=== PATIENT | female | born 1945 | race Caucasian/White ===

== ENCOUNTER 2016-11-04 08:23 | Emergency (ER) | payer OTHER ==
--- NOTE | 2016-11-04 08:33 | EDPHY ---
H & P Time Seen by Provider: 11/04/16 08:31 HPI/ROS: CHIEF COMPLAINT: Knee pain HISTORY OF PRESENT ILLNESS: The patient is a 71-year-old female presenting with acute left knee pain that started yesterday afternoon. The patient was line dancing yesterday without difficulty or pain. About 1 hour after dancing she stood up from the couch and felt as though her left knee would not support her. Today she reports dull pain with weightbearing. She has difficulty ambulating secondary to the pain and has been using a knee brace from a previous ACL injury as well as a cane to get around. She denies lower extremity weakness, numbness or tingling. No hip or ankle pain. No reported injury or trauma. No fever. She has taken Tylenol. She is unable to localize the site of her pain. REVIEW OF SYSTEMS: A ten point review of systems was performed and is negative with the exception of the items mentioned in the HPI. Source: Patient - Medical/Surgical History Other PMH: HTN, High cholesterol, Glaucoma - Social History Smoking Status: Never smoked Alcohol Use: Rarely Additional Social History: Rare alcohol use. Nonsmoker. lives with . Retired gifted teacher. Cares for her 8 year old and five year old grandchildren four days weekly. - Physical Exam Exam: General Appearance: Alert. Vital signs reviewed. Focused examination was performed. BP 164/87. Respiratory: Lungs are clear to auscultation; no wheezes, rales, or rhonchi. Cardiovascular: Regular rate and rhythm; no murmur, rub, or gallop. Skin: Warm and dry, no rashes on exposed skin, normal color. No erythema or lesions of the left leg. Back: Nontender to palpation over the thoracolumbar spine. Extremities: No joint line tenderness. No patellar tenderness. No bone tenderness with palpation of the left hip, femur, knee, tib-fib. No effusion. Full passive range of motion with slight discomfort of knee. Full active range of motion of the left knee. 5/5 left LE strength, normal sensation to light touch both lower extremities. No ligamentous instability with provocative testing L knee. Pulses: 2+ bilateral dorsalis pedis pulses. Neurological: Alert and oriented. Psychiatric: Normal affect. Constitutional: Initial Vital Signs Temperature (C) 36.9 C 05/02/17 08:30 Heart Rate 79 11/04/16 08:30 Respiratory Rate 18 11/04/16 08:30 Blood Pressure 164/87 H 11/04/16 08:30 O2 Sat (%) 95 11/04/16 08:30 O2 Delivery Mode Room Air Allergies/Adverse Reactions: No Known Allergies Allergy (Verified 11/04/16 08:40) Home Medications: Medication Instructions Recorded Atenolol 08/28/10 SIMVASTATIN 08/28/10 Vits,Ca,Fish Oil 08/28/10 Xalaton Eye Drops 08/28/10 Losartan Potassium 09/04/15 Medical Decision Making ED Course/Re-evaluation: Atraumatic left knee pain. No bony tenderness. I do not think that an x-ray would be helpful in she would like to avoid an x-ray today. MRI not warranted at this stage of her injury. She had a previous right knee injury that she was able to rehabilitate on her own. As a result, she has a brace that she is wearing. She will continue with this brace. She is advised to continue to ice and elevate as needed. She has a cane that she will use as needed. We reviewed the danger signs that should prompt her to be re-evaluated immediately with these including new weakness, significant back pain, warmth or redness of the overlying skin, fever, and inability to walk. She will schedule an appointment with her orthopedist for later in the week. She has been taking Tylenol will continue with this medication. She will also use ibuprofen judiciously. Patient is aware that her blood pressure was high this morning. She states that this is often the case when she is in a doctor's office. Her hypertension is normally in good control. Differential Diagnosis: I considered a differential diagnosis that includes but is not limited to cellulitis, joint infection, fracture, dislocation, sprain, and strain/internal disruption. Departure - Departure Disposition: Home, Routine, Self-Care Clinical Impression: Knee strain Qualifiers: Encounter type: initial encounter Laterality: left Qualified Code(s): S86.912A - Strain of unspecified muscle(s) and tendon(s) at lower leg level, left leg, initial encounter Condition: Good Instructions: Knee Sprain (ED) Additional Instructions: We recommend a dose of Acetaminophen (Tylenol) and Ibuprofen (Motrin,Advil) for pain control. When pain is severe, both drugs can be used at the same time, but at different intervals. Please note the time differences. Your dose is: Acetaminophen 650mg every 4 hours Ibuprofen 400mg every 8 hours with food. Note: do not take Acetaminophen with Hydrocodone (Vicodin, Lortab) or Oycodone (Percocet). These medications also contain Acetaminophen. No more than 3000mg of Acetaminophen should be taken in 24 hours (for an adult). Continue to wear your knee brace and use your cane as needed for comfort. Continue to apply ice to the knee. Call Dr. Hannah to schedule a followup appointment at the end of the week for continued pain. Referrals: Jenny Gonzalez MD [Primary Care Provider] - As per Instructions Reynaldo Hannah MD [Medical Doctor] - As per Instructions Report Scribed for: Brenda Armstrong Report Scribed by: Sherie Adams Date of Report: 11/04/16 Time of Report: 08:55 Physician Review and Approval Statement: 11/04/16 08:33 Portions of this note were transcribed by the medical psychotherapist. I, Dr. Brenda Armstrong, personally performed the history, physical exam, and medical decision- making; and confirmed the accuracy of the information in the transcribed note.
[2016-11-04 09:05] VITALS: BP 164/72; PULSE 68; RESP 16; TEMP 97.9; O2SAT 94
== END 2016-11-04 09:03 | disposition home or self-care (01) ==
LOC: CED 08:23
DX: S86.912A Strain of unspecified muscle(s) and tendon(s) at lower leg level, left leg, initial encounter (principal); X58.XXXA Exposure to other specified factors, initial encounter

== ENCOUNTER 2017-01-18 22:00 | Emergency (ER) | payer OTHER ==
[2017-01-18] MEDS ORDERED: ONDANSETRON 4 MG/2 ML VIAL IVP ONE (22:16)
[2017-01-18] MEDS ORDERED: NS 1,000 ML IV ONE (22:16)
[2017-01-18 22:18] VITALS: TEMP 98.4
--- NOTE | 2017-01-18 22:21 | EDPHY ---
H & P Smoking Status: Never smoked Time Seen by Provider: 01/18/17 22:09 HPI/ROS: CHIEF COMPLAINT: Abdominal pain HISTORY OF PRESENT ILLNESS: 72-year-old female presents with severe abdominal pain. 30 minutes after eating dinner tonight, she developed severe generalized abdominal pain. The pain has been constant and increases with deep inspiration. No associated symptoms and no alleviating factors. No prior similar symptoms and no prior abdominal surgery. REVIEW OF SYSTEMS: Constitutional: No fever, no chills Eyes: No visual changes ENT: No sore throat Respiratory: No cough, no shortness of breath Cardiac: No chest pain Genitourinary: no dysuria Musculoskeletal: No leg pain or swelling Skin: No rash Neurological: No headache, no weakness Psychiatric: No depression (Gauri Arango) Past Medical/Surgical History: Plantar fasciitis (Gauri Arango) Social History: (Gauri Arango) Physical Exam: General Appearance: Alert, pleasant, appears in pain Eyes: Pupils equal and round, no conjunctival pallor or injection ENT, Mouth: Mucous membranes moist Neck: Normal inspection Respiratory: Lungs are clear to auscultation Cardiovascular: Regular rate and rhythm Gastrointestinal: Abdomen is soft, moderate tenderness in the right upper quadrant, mild tenderness in the epigastrium and right lower quadrant, decreased bowel sounds, no peritoneal signs Neurological: A&O, nonfocal exam Skin: Warm and dry, no rash Extremities: Nontender, no pedal edema Psychiatric: Mood and affect normal (Gauri Arango) Constitutional: Initial Vital Signs Temperature (C) 36.9 C 01/18/17 22:14 Heart Rate 78 01/18/17 22:14 Respiratory Rate 18 01/18/17 22:14 Blood Pressure 142/67 H 01/18/17 22:14 O2 Sat (%) 96 01/18/17 22:14 O2 Delivery Mode Room Air O2 (L/minute) 1 Allergies/Adverse Reactions: No Known Allergies Allergy (Verified 11/04/16 08:40) Home Medications: Medication Instructions Recorded Aspirin [Aspirin 81mg (*)] 81 mg PO DAILY 01/19/17 Atenolol [Atenolol] 25 mg PO DAILY 01/19/17 Calcium Carbonate [Oyster Shell 500 mg PO BID 01/19/17 Calcium 500 mg (*)] Latanoprost [Latanoprost] 1 drop EACHEYE HS 01/19/17 Losartan Potassium [Losartan 50 mg PO DAILY@14 01/19/17 Potassium] [place]-3 Fatty Acids [Fish Oil 1000 1,000 mg PO BID 01/19/17 mg (*)] SIMVASTATIN [Zocor] 20 mg PO HS 01/19/17 Medical Decision Making ED Course/Re-evaluation: Clinical presentation most concerning for biliary colic (versus peptic ulcer disease). Morphine 6 mg IV and Zofran 4 mg IV given. Feels better after these medications. Stat abdominal ultrasound ordered. This patient was signed over to Dr. Resendiz at shift change, labs and ultrasound pending. (Gauri Arango) Differential Diagnosis: Differential diagnosis includes though it is not limited to appendicitis, cholecystitis, diverticulitis, pyelonephritis, bowel perforation, small bowel obstruction. (Gauri Arango) Other Provider: Ultrasound positive for gallstones No wall thickening, no fluid, common bile duct 6 mm normal for patient's age Impression Cholelithiasis without obstruction, no evidence of infection Patient feeling markedly improved Plan Discharge Follow-up with surgery as soon as possible (Radha Resendiz) - Data Points Laboratory Results: Laboratory Results 01/18/17 22:14 01/18/17 22:14 Medications Given: Discontinued Medications Sodium Chloride (Ns) 1,000 mls @ 0 mls/hr IV EDNOW ONE; Wide Open PRN Reason: Protocol Stop: 01/18/17 22:17 Last Admin: 01/18/17 22:20 Dose: 1,000 mls Morphine Sulfate (Morphine) 6 mg IVP EDNOW ONE Stop: 01/18/17 22:17 Last Admin: 01/18/17 22:28 Dose: 6 mg Ondansetron HCl (Zofran) 4 mg IVP EDNOW ONE Stop: 01/18/17 22:17 Last Admin: 01/18/17 22:27 Dose: 4 mg Departure - Departure Disposition: Home, Routine, Self-Care Clinical Impression: Cholelithiasis Condition: Good Instructions: Biliary Colic (ED), Gallstones (ED) Referrals: NONE *PRIMARY CARE P,. [Primary Care Provider] - As per Instructions Diego Michael MD [Medical Doctor] - As per Instructions
[2017-01-18 22:25] LABS: % IMMATURE GRANULYOCYTES 0.5 % (0.0-1.1); ABSOLUTE IMMATURE GRANULOCYTES 0.07 10^3/uL (0.00-0.10); ADD DIFF? NO; ADD MORPH? NO; ADD SCAN? NO; ATYPICAL LYMPHOCYTE FLAG 0 (0-99); FRAGMENT RBC FLAG 0 (0-99); HEMATOCRIT 42.9 % (38.0-47.0); HEMOGLOBIN 15.1 g/dL (12.6-16.3); LEFT SHIFT FLG 20 (0-99); LIPEMIA HEMOLYSIS FLAG 90 (0-99); MEAN CELL HEMOGLOBIN 31.7 pg (27.9-34.1); MEAN CELL HEMOGLOBIN CONCENTR. 35.2 g/dL (32.4-36.7); MEAN CELL VOLUME 90.1 fL (81.5-99.8); MEAN PLATELET VOLUME 9.6 fL (8.7-11.7); PLATELET CLUMPS FLAG 10 (0-99); PLATELET COUNT 267 10^3/uL (150-400); RED BLOOD CELL COUNT 4.76 10^6/uL (4.18-5.33); RED CELL DISTRIBUTION WIDTH 12.2 % (11.5-15.2)
[2017-01-18 22:39] LABS: ALANINE AMINOTRANSFERASE 45 IU/L (9-52); ALBUMIN 4.2 g/dL (3.5-5.0); ALKALINE PHOSPHATASE 79 IU/L (38-126); ANION GAP 14 mEq/L (8-16); ASPARTATE AMINOTRANSFERASE 25 IU/L (14-46); BILIRUBIN,TOTAL 0.8 mg/dL (0.1-1.4); BILIRUBIN-CONJUGATED 0.3 mg/dL (0.0-0.5); BILIRUBIN-UNCONJUGATED 0.5 mg/dL (0.0-1.1); CALCIUM 9.9 mg/dL (8.5-10.4); CARBON DIOXIDE 25 mEq/l (22-31); CHLORIDE 99 mEq/L (97-110); CREATININE 0.7 mg/dL (0.6-1.0); GLOMERULAR FILTRATION RATE > 60; GLUCOSE 144 mg/dL (70-100); POTASSIUM 3.9 mEq/L (3.5-5.2); SODIUM 138 mEq/L (134-144); TOTAL PROTEIN 6.8 g/dL (6.3-8.2)
[2017-01-18 22:58] VITALS: RESP 14
[2017-01-19 02:30] VITALS: BP 138/62; PULSE 96; O2SAT 93
[2017-01-19] MEDS ORDERED: LIDOCAINE 2% 5 ML SDV ONE (22:51)
[2017-01-19] MEDS ORDERED: PROPOFOL 200 MG/20 ML VIAL ONE (22:51)
[2017-01-19] MEDS ORDERED: DEXAMETHASONE 4 MG/ML VIAL ONE ×2 (22:51)
[2017-01-19] MEDS ORDERED: ONDANSETRON 4 MG/2 ML VIAL ONE (22:51)
[2017-01-19] MEDS ORDERED: SUGAMMADEX SODIUM 200 MG/2 ML VIAL IVP ONE (22:51)
[2017-01-19] MEDS ORDERED: ROCURONIUM 50 MG/5 ML VIAL ONE (22:51)
[2017-01-19] MEDS ORDERED: fentaNYL 100 MCG/2 ML INJ ONE ×2 (22:51→23:40)
[2017-01-19] MEDS ORDERED: METOPROLOL TARTRATE 5 MG/5 ML INJ ONE (23:45)
== END 2017-01-19 02:00 | disposition home or self-care (01) ==
LOC: CED 22:00
DX: K80.20 Calculus of gallbladder without cholecystitis without obstruction (principal); E86.9 Volume depletion, unspecified; Z79.82 Long term (current) use of aspirin
CPT/HCPCS: 76700; 96361; 96374; 96375; 99285; J1100; J2405; J2704; J3010; 80048-PO; 80076-PO; 83690-PO; 85025-PO

== ENCOUNTER 2017-01-19 15:10 | Observation (INO) | payer OTHER ==
[2017-01-19] MEDS ORDERED: ceFAZolin 2 GM/DEXTROSE 100 ML IV ONE (16:29)
[2017-01-19] MEDS ORDERED: D5W 1/2 NS W/ 20 KCl/L 1,000 ML IV SCH (16:30)
[2017-01-19] MEDS ORDERED: HYDROmorphONE/DILAUDID 1 MG/ML SYR IVP PRN ×2 (16:30→23:10)
[2017-01-19] MEDS ORDERED: ONDANSETRON 4 MG/2 ML VIAL IVP PRN ×2 (16:30→23:10)
--- NOTE | 2017-01-19 19:42 | PDGENHP ---
History and Physical History and Physical: CC: RUQ pain HPI: 72 Y F s/p ED visit last night c/o RUQ pain since 5:30 pm yesterday evening about a half hour after dinner and associated with nausea. No vomiting or fevers. Pain is worsening this afternoon. She has never had pain like this before and it is different from heartburn pain. US showed cholelithiasis, no wall thickening or biliary dilitation. LFTs were normal. WBCs elevated 14,000. PMH: BCC, HTN, gout, early glaucoma PSH: denies Meds: losartan, simvastatin, atenolol, vitamins, xalatan eye gtts, omegas, calcium, vit D, ASA All: NKDA Social: here with Fam: colon CA ROS: please see HPI. neg 10 point ROS aside from hpi Exam: gen: alert, nad heent: no jaundice pulm: ctab cor: rrr abd: soft, +alvarado's sign with RUQ tenderness and guarding ext: wwp mood: nl affect skin: warm, dry A/P: 72 Y F cholelithiasis, cholecystitis. Admit for hydration, supportive care, and eventually lap ting later this evening. Risks and options discussed in detail.
--- NOTE | 2017-01-19 21:29 | SOAPPROG ---
LANNY Progress Note Assessment/Plan: Assessment: 72-year-old female with acute cholecystitis and biliary colic pain with ultrasound revealing multiple stones, normal ducts Admit for lap choly. Risks and options been fully discussed and she wishes to proceed Past history is negative Review of systems is negative on a full 10 point review of systems Family history is noncontributory Exam reveals her to be nonicteric afebrile and no acute distress Chest is clear and symmetric/cardiac exam was regular rhythm Abdomen is soft with tenderness in the right upper quadrant and some guarding Impression is biliary colic and cholecystitis Plan: Lap choly/risks and options been fully discussed and she wished to proceed 01/19/17 21:27 Objective: Vital Signs Temp Pulse Resp BP Pulse Ox 36.9 C 102 H 16 164/91 H 93 01/19/17 20:00 01/19/17 20:00 01/19/17 20:00 01/19/17 20:00 01/19/17 20:00 01/18/17 01/19/17 01/20/17 05:59 05:59 05:59 Intake Total 125 Balance 125 ICD10 Worksheet Patient Problems: Problems Problem Status Onset Cholelithiasis Acute
[2017-01-19] MEDS ORDERED: CEFAZOLIN 2 GM/DEXTROSE/100 ML BAG IV ONE (22:12)
[2017-01-19] MEDS ORDERED: HEPARIN 1000 UNIT/1 ML MDV ONE (22:37)
[2017-01-19] MEDS ORDERED: BUPIVACAINE 0.5% 30 ML SDV ONE (22:37)
[2017-01-19] MEDS ORDERED: ceFAZolin 1 GM/5 ML SYR ONE (22:37)
--- NOTE | 2017-01-19 22:39 | PDANEPAE ---
ANE Past Medical History - Cardiovascular History Hx Hypertension: Yes Hx Chest Pain: No Hx Coronary Artery / Peripheral Vascular Disease: No Hx CHF / Valvular Disease: No Hx Palpitations: No - Pulmonary History Hx COPD: No Hx Asthma/Reactive Airway Disease: No Hx Recent Upper Respiratory Infection: No Hx Oxygen in Use at Home: No Hx Sleep Apnea: No Sleep Apnea Screening Result - Last Documented: Positive - Endocrine History Hx Diabetes: No Obesity: mild - Chronic Pain History Chronic Pain: No - Surgical History Prior Surgeries: Endoscopy ANE Review of Systems - Exercise capacity Exercise capacity: >=4 METS ANE Patient History - Allergies Allergies/Adverse Reactions: No Known Allergies Allergy (Verified 11/04/16 08:40) - Home Medications Home Medications: Aspirin [Aspirin 81mg (*)] 81 mg PO DAILY 01/19/17 [Last Taken 01/18/17] Atenolol [Atenolol] 25 mg PO DAILY 01/19/17 [Last Taken 01/17/17] Calcium Carbonate [Oyster Shell Calcium 500 mg (*)] 500 mg PO BID 01/19/17 [ Last Taken 01/18/17] Latanoprost [Latanoprost] 1 drop EACHEYE HS 01/19/17 [Last Taken 01/18/17] Losartan Potassium [Losartan Potassium] 50 mg PO DAILY@14 01/19/17 [Last Taken 01/17/17] [place]-3 Fatty Acids [Fish Oil 1000 mg (*)] 1,000 mg PO BID 01/19/17 [Last Taken 01/18/17] SIMVASTATIN [Zocor] 20 mg PO HS 01/19/17 [Last Taken 01/17/17] - NPO status NPO Since - Liquids (Date): 01/19/17 NPO Since - Solids (Date): 01/19/17 - Anes Hx Anes Hx: no prior problems - Smoking Hx Smoking Status: Never smoked Marijuana use: No ANE Labs/Vital Signs - Vital Signs Blood Pressure: 164/91 Heart Rate: 102 Respiratory Rate: 16 O2 Sat (%): 93 Height: 167.64 cm Weight: 65.771 kg ANE Physical Exam - Airway Neck exam: FROM Mallampati Score: Class 2 Mouth exam: normal dental/mouth exam - Pulmonary Pulmonary: no respiratory distress, no rales or rhonchi - Cardiovascular Cardiovascular: regular rate and rhythym, no murmur, rub, or gallop - ASA Status ASA Status: II ANE Anesthesia Plan Anesthesia Plan: general endotracheal anesthesia
[2017-01-19] MEDS ORDERED: NALOXONE HCL 0.4 MG/ML INJ IVP PRN (22:50)
[2017-01-19] MEDS ORDERED: fentaNYL 100 MCG/2 ML INJ IVP PRN (23:10)
[2017-01-19] MEDS ORDERED: PROMETHAZINE HCL 25 MG/ML INJ IVP PRN (23:10)
[2017-01-19] MEDS ORDERED: LR 500 ML IV PRN (23:10)
[2017-01-19] MEDS ORDERED: MEPERIDINE 25 MG/ML SYR IVP PRN (23:10)
[2017-01-19] MEDS ORDERED: LABETALOL HCL 50 MG/10 ML SYR IVP PRN (23:10)
[2017-01-19] MEDS ORDERED: ENALAPRILAT DIHYDRATE 1.25 MG/ML VIAL IVP PRN (23:10)
--- NOTE | 2017-01-20 00:09 | POSTOPPROG ---
Post Op Note Date of Operation: 01/20/17 Surgeon: Dani Peraza Anesthesiologist: TERESSA Anesthesia: GET(General Endotracheal) Pre-op Diagnosis: ACUTE CHOLECYSTITIS Post-op Diagnosis: SAME Indication: PAIN Procedure: LAP CHOLEY Findings: ACUTE CHOLECYSTITIS, SMALL DUCTS, SMALL STONES Inf/Abcess present in the surg proc area at time of surgery?: Yes Depth: Organ Space EBL: Minimal Complications: NONE Specimen(s): GALLBLADDER
[2017-01-20] MEDS ORDERED: OXYCODONE/APAP 5/325 TAB PO PRN (00:12)
[2017-01-20] MEDS ORDERED: HYDROmorphONE/DILAUDID 1 MG/ML SYR IVP PRN (00:12)
[2017-01-20] MEDS ORDERED: D5W 1/2 NS W/ 20 KCl/L 1,000 ML IV SCH (00:15)
--- NOTE | 2017-01-20 00:16 | POSTANESTH ---
Post Anesthetic Evaluation Cardiovascular Status: Normal, Stable, Similar to Pre-Op Cond Respiratory Status: Normal, Stable, Similar to Pre-op Cond. Level of Consciousness/Mental Status: Can Participate in Eval, Moderately Sleepy Pain Control: Adequate, Prn Tx Ordered Nausea/Vomiting Control: Adequate, Prn Tx Ordered Complications Possibly Related to Anesthesia: None Noted
[2017-01-20] MEDS: KETOROLAC 15 MG/1 ML SDV IVP SCH ×2 (05:45→13:06)
[2017-01-20 08:21] VITALS: O2SAT 92
[2017-01-20] MEDS ORDERED: ASPIRIN 81 MG CHEWABLE TAB PO SCH (09:00)
[2017-01-20] MEDS ORDERED: ATENOLOL 25 MG TAB PO SCH (09:00)
[2017-01-20] MEDS ORDERED: CALCIUM CARBONATE 500 MG TAB PO SCH (09:00)
[2017-01-20] MEDS ORDERED: OMEGA-3 FATTY ACIDS 1,000 MG CAP PO SCH (09:00)
[2017-01-20] MEDS ORDERED: ATORVASTATIN CALCIUM 10 MG TAB PO SCH (09:00)
[2017-01-20] MEDS ORDERED: ERTAPENEM 1 GM in NS 100 ML IV SCH (09:00)
[2017-01-20 13:09] VITALS: BP 119/65
[2017-01-20 13:45] VITALS: PULSE 83; RESP 16; TEMP 98.1
[2017-01-20] MEDS ORDERED: LOSARTAN POTASSIUM 50 MG TAB PO SCH (14:00)
--- NOTE | 2017-01-20 14:46 | SOAPPROG ---
SOAP Progress Note Assessment/Plan: Assessment/Plan: 72 Y F s/p lap ting. DOing well. D/c to home. S: eager to go home. eating. pain controlled. no n/v. alert, nad mmm ctab rrr abd soft, inc cdi 01/20/17 14:45 Objective: Vital Signs Temp Pulse Resp BP Pulse Ox 36.7 C 83 16 119/65 92 01/20/17 12:00 01/20/17 12:00 01/20/17 12:00 01/20/17 13:08 01/20/17 12:00 01/19/17 01/20/17 01/21/17 05:59 05:59 05:59 Intake Total 1345 Output Total 375 Balance 970 ICD10 Worksheet Patient Problems: Problems Problem Status Onset Cholelithiases Acute - ICD10 Problem Qualifiers (1) Cholelithiases Qualifiers: Cholelithiasis location: C Cholecystitis presence: C Cholangitis presence : C Cholecystitis acuity: C Cholangitis acuity: C Biliary obstruction: B
[2017-01-20] MEDS ORDERED: SIMVASTATIN 20MG TABLETS PO SCH (21:00)
[2017-01-20] MEDS ORDERED: LATANOPROST 0.005% 2.5 ML OPHT DROPS EACHEYE SCH (21:00)
== END 2017-01-20 16:16 | disposition home or self-care (01) ==
LOC: F3E 15:59
PROVIDERS: ADMIT Surgery; ATTEND Surgery
PROC: 0FT44ZZ Resection of Gallbladder, Percutaneous Endoscopic Approach (ICD-10-PCS; principal; 2017-01-19 19:15)
DX: K80.00 Calculus of gallbladder with acute cholecystitis without obstruction (principal); R11.2 Nausea with vomiting, unspecified; I10 Essential (primary) hypertension; M10.9 Gout, unspecified; H40.9 Unspecified glaucoma
CPT/HCPCS: 47562; 76700; 88304; 96361; 96374; 96375; 99285; J0690; J1100; J1170; J1335; J1885; J2405; J2704; J3010; 80048-PO; 80076-PO; 83690-PO; 85025-PO

== ENCOUNTER → 2017-01-28 | Outpatient (CLI) | payer OTHER | LOC: CIMAGING 07:59 | PROVIDERS: ATTEND Internal Medicine | DX: Z12.31 Encounter for screening mammogram for malignant neoplasm of breast (principal) | CPT/HCPCS: G0202 ==

== ENCOUNTER → 2018-01-29 | Outpatient (CLI) | payer OTHER | LOC: CIMAGING 07:53 | PROVIDERS: ATTEND Internal Medicine | DX: Z12.31 Encounter for screening mammogram for malignant neoplasm of breast (principal) ==

== ENCOUNTER → 2018-07-01 | Outpatient (CLI) | payer OTHER | LOC: FIMAGING 10:59 | PROVIDERS: ATTEND Internal Medicine | DX: Z13.820 Encounter for screening for osteoporosis (principal); M85.89 Other specified disorders of bone density and structure, multiple sites; Z78.0 Asymptomatic menopausal state ==